=== PATIENT | male | born 1955 | race Caucasian/White ===

== ENCOUNTER 2019-10-18 09:18 | Day surgery (SDC) | payer SELFPAY ==
--- OUTSIDE RECORDS SUMMARY | 2019-10-18 09:27 | XMS REPORT ---
:1955 [facility] Address [address] [place] [address] Dr. Franco [address] [place] [id number] Care Team Providers Name Role Phone Unavailable Unavailable Unavailable Problems This patient has no known problems. Allergies, Adverse Reactions, Alerts This patient has no known allergies or adverse reactions. Medications This patient has no known medications.
[2019-10-18 09:43] LABS: Absolute Lymphocytes (CBC) 1.3 K/uL (0.7-4.9); Basophils % 0.5 % (0-1.3); Hematocrit 46.3 % (39.6-49.0); Lymphocytes % 13.3 % (15.3-44.8); MPV 9.3 fL (7.6-11.3); RBC Red Blood Cell Count 5.32 M/uL (4.33-5.43)
[2019-10-18] MEDS ORDERED: NA CHLORIDE 0.9% 1,000 ML ONE (09:45)
[2019-10-18] MEDS ORDERED: CEFAZOLIN/SWI 1gm 1 GM/10 ML SYR ONE (09:45)
[2019-10-18] MEDS ORDERED: FENTANYL CITR 100 MCG/2 ML ONE (10:33)
[2019-10-18] MEDS ORDERED: MIDAZOLAM HCL 2 MG/2 ML INJ ONE (10:34)
[2019-10-18] MEDS ORDERED: propofoL 200 MG/20 ML VIAL IV ONE (10:34)
[2019-10-18] MEDS ORDERED: LIDOCAINE 1% MPF 5 ML VIAL ONE (10:34)
[2019-10-18] MEDS ORDERED: SILVER SULFADIAZINE 1% 25 GM TOP ONE (11:02)
[2019-10-18] MEDS ORDERED: KETOROLAC 30 MG/ML INJ ONE (11:04)
[2019-10-18] MEDS ORDERED: ONDANSETRON 4 MG/2 ML VIAL ONE (11:23)
--- NOTE | 2019-10-18 11:41 | EKG ---
Test Date: 2019-10-18 Test Time: 09:29:37 Care Asst: CYNTHIA MEASUREMENT RESULTS: Intervals: Rate: 72 NC: 156 QRSD: 110 QT: 360 QTc: 394 [place]: P: 60 NC: 156 QRS: 30 T: 53 INTERPRETIVE STATEMENTS: Normal sinus rhythm Normal ECG No previous ECG available for comparison Electronically Signed On 10-18-19 11:40:38 MANAGER POST by Jaxon Mora
[2019-10-18] MEDS: HYDROMORPHONE HCL 1 MG/ML INJ ONE ×2 (11:55→12:00)
[2019-10-18] MEDS ORDERED: CODEINE 30MG/APAP 300MG TAB ONE (12:39)
[2019-10-18] MEDS ORDERED: CODEINE 30MG/APAP 300MG TAB PO ONE (12:40)
[2019-10-18 13:47] VITALS: BP 143/76; TEMP 97.6; O2SAT 96
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
== END 2019-10-18 13:02 | disposition home or self-care (01) ==
LOC: OR 09:18
PROVIDERS: ATTEND Specialist
PROC: 0JDK0ZZ Extraction of Left Hand Subcutaneous Tissue and Fascia, Open Approach (ICD-10-PCS; principal; 2019-10-18 10:45)
DX: S61.207A Unspecified open wound of left little finger without damage to nail, initial encounter (principal)
CPT/HCPCS: 36415; 82947; 85025; 88300; 93005; J0690; J1170; J2250; J2405; J2704; J3010; J7030

== ENCOUNTER 2019-11-01 07:24 | Day surgery (SDC) | payer SELFPAY ==
--- OUTSIDE RECORDS SUMMARY | 2019-11-01 07:27 | XMS REPORT ---
:1955 [facility] Address [address] [place] [address] Dr. Franco [address] [place] [address] Care Team Providers Name Role Phone Unavailable Unavailable Unavailable Problems This patient has no known problems. Allergies, Adverse Reactions, Alerts This patient has no known allergies or adverse reactions. Medications This patient has no known medications.
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
[2019-11-01] MEDS ORDERED: NA CHLORIDE 0.9% 1,000 ML ONE ×2 (07:56→10:05)
[2019-11-01] MEDS ORDERED: CEFAZOLIN/SWI 1gm 1 GM/10 ML SYR ONE (07:57)
[2019-11-01] MEDS: MINERAL OIL, LITE 10 ML VIAL ONE ×2 (08:48→09:02)
[2019-11-01] MEDS ORDERED: FENTANYL CITR 100 MCG/2 ML ONE ×2 (08:58→10:00)
[2019-11-01] MEDS ORDERED: propofoL 200 MG/20 ML VIAL IV ONE (08:58)
[2019-11-01] MEDS ORDERED: MIDAZOLAM HCL 2 MG/2 ML INJ ONE (08:59)
[2019-11-01] MEDS ORDERED: ONDANSETRON 4 MG/2 ML VIAL ONE ×2 (09:01→10:46)
[2019-11-01] MEDS ORDERED: LIDOCAINE 1% MPF 2 ML AMPULE ONE (09:01)
[2019-11-01] MEDS: HYDROMORPHONE HCL 1 MG/ML INJ ONE ×4 (10:30→10:51)
[2019-11-01] MEDS: MEPERIDINE HCL 25 MG/0.5 ML ONE ×2 (10:47→10:52)
[2019-11-01] MEDS ORDERED: KETOROLAC 30 MG/ML INJ ONE (11:03)
[2019-11-01 12:42] VITALS: BP 142/64; TEMP 96.6; O2SAT 100
--- NOTE | 2019-11-01 21:07 | OP ---
Surgeon: Rigo Hutchins MD Preoperative Diagnosis: Open wounds of the left hand and left little finger. Postoperative Diagnosis: Open wounds of the left hand and left little finger. Procedure Performed: Debridement of skin and subcutaneous tissue, full-thickness skin graft. Anesthesia: General. Description Of Procedure: After satisfactory induction of general anesthesia, the left arm and hand were prepped with Betadine scrub, Betadine paint, dry sterile drapes applied in the usual manner. An elliptical incision was made over the groin approximately 4 cm long, about 1/2 cm wide partial-thick ness, then full-thickness skin was excised and then the wound was closed in layers with 4-0 PDS inter rupted then 4-0 PDS running subcuticular. Tincture of benzoin, Steri-Strips, 4x4 were applied. Atte ntion was turned to the hands. Scalpel forceps and tenotomy scissors were used to debride skin, subc utaneous tissue, and remove foreign body. Still some small fragments left. After this was done, the wound was jet lavaged, irrigated with 3 L of dilute Betadine solution. The tourniquet released. El ectrocautery used for hemostasis and then the skin graft was sewn and the little finger first is appr oximately 1/2 x 1 cm sewn with interrupted 4-0 Prolene sutures, tied over the skin with Xeroform rubb er sponge. The palm with a larger wound about 2.5 cm x about 0.5 cm. It was closed with 4-0 PDS of Xeroform, 4x4, sponge. Dressings consist of 2-inch Marah, 4x4 with a tape. The patient tolerated the procedur e well, returned to Recovery. BILLY/STEVEN Voice ID: [id number] Report ID: [id number]
== END 2019-11-01 12:48 | disposition home or self-care (01) ==
LOC: OR 07:24
PROVIDERS: ATTEND Specialist
PROC: 0HBAXZZ Excision of Inguinal Skin, External Approach (ICD-10-PCS; 2019-11-01)
PROC: 0HRGX73 Replacement of Left Hand Skin with Autologous Tissue Substitute, Full Thickness, External Approach (ICD-10-PCS; principal; 2019-11-01 09:00)
DX: S61.402A Unspecified open wound of left hand, initial encounter (principal); S61.207A Unspecified open wound of left little finger without damage to nail, initial encounter; E11.9 Type 2 diabetes mellitus without complications
CPT/HCPCS: 82947; J0690; J1170; J2001; J2175; J2250; J2405; J2704; J3010; J7030